=== PATIENT | male | born 1970 | race Two or more races ===

== ENCOUNTER 2025-02-13 15:46 | Inpatient (IN) | payer MEDICAID, OTHER ==
[~2025-02-13] VITALS: Ht 157.5 cm; Wt 71.7 kg
--- NOTE | 2025-02-13 19:00 | ED.PDOC ---
History of Present Illness HPI Comments 54 year old male presents to the ED with a chief complaint of wound check onset today. Patient [place] [facility] [place] he cut his LT middle finger while he was cutting wood, states laceration was glued and sutured. Since then, patient has noted black color around wound, has been experiencing fever, pain and swelling. Patient is concerned for infection. Denies nausea, vomiting, diarrhea, headache, dizziness, chest pain, shortness of breath, numbness/tingling. No other symptoms or modifying factors present at this time. PHYSICAL EXAM: General: Awake, alert and oriented. No acute distress. Skin: Skin in warm, dry and intact without rashes or lesions. HEENT: The head is normocephalic and atraumatic. Conjunctivae are clear without exudates or hemorrhage. Sclera is non-icteric. Neck: Normal range of motion. No JVD. Cardiac: Regular rate Respiratory: No signs of respiratory distress. No Stridor. Extremities: 3rd distal digit tender, erythematous, swollen with some area of necrotic appearing tissue. Range of motion of joints intact. Eight sutures imbedded. Neurological: The patient is awake, alert and oriented to person, place, and time with normal speech. Speech is clear. There is no facial asymmetry. Psychiatric: Appropriate mood and affect. Good judgement and insight. REVIEW OF SYSTEMS: General: fever. no chills, or fatigue HEENT: No sore throat, no earache, no congestion, no neck pain. Cardiac: No chest pain. No palpitations. Lungs: No shortness of breath, no cough. GI: No nausea, no vomiting, no diarrhea, no constipation, no abdominal pain : No dysuria, frequency, or urgency. No hematuria. Musculoskeletal: swelling to LT 3rd digit, pain. Skin: wound LT 3rd digit. Neuro: No headache, no dizziness, no weakness (And as sated in HPI) Chief Complaint: Wound Check Time Seen by MD: 18:30 Reviewed Notes: Medications, Allergies Allergies: Coded Allergies: Penicillins (Verified Allergy, Unknown, 02/13/25) Information Source: Patient Mode of Arrival: Ambulatory Severity: Moderate Timing: Hours Duration: Since onset Prehospital treatment: None Past Medical History PAST MEDICAL HISTORY: Denies Surgical History: Denies all surgeries Family History Family History: Reviewed,noncontributory to illness, No family hx of Cancer, No family hx of DM, No family hx of Heart jeffy, No family hx of HTN, No family hx ofKidney jeffy, No family hx of Liver jeffy, No family hx of Lung jeffy, No family hx of Stroke Social History Smoker: Non-Smoker Alcohol: Denies ETOH Use Drugs: Denies Drug Use Lives In: Home Was a procedure done? Was a procedure done?: No Differential Dx Considerations may include: Include but are not limited to Cellulitis, abscess, felon, paronychia, osteomyelitis, sepsis, other X-Ray, Labs, Meds, VS Vital Signs Date Time Temp Pulse Resp B/P (MAP) Pulse Ox O2 Delivery O2 Flow Rate FiO2 02/13/25 15:49 98.3 70 18 134/98 99 98.3 Lab Test 02/13/25 19:05 Range/Units White Blood Count 8.1 4.4-10.8 10^3/uL Red Blood Count 4.55 4.5-5.90 10^6/uL Hemoglobin 15.0 13.5-17.5 g/dL Hematocrit 43.3 41.0-53.0 % Mean Corpuscular Volume 95.1 80.0-100.0 fL Mean Corpuscular Hemoglobin 32.9 H 28.0-32.0 pg Mean Corpuscular Hemoglobin Concent 34.6 32.0-36.0 g/dL Red Cell Distribution Width 13.4 11.8-14.3 % Platelet Count 398 140-450 10^3/uL Mean Platelet Volume 6.8 L 6.9-10.8 fL Neutrophils (%) (Auto) 54.9 37.0-80.0 % Lymphocytes (%) (Auto) 26.9 10.0-50.0 % Monocytes (%) (Auto) 10.9 0.0-12.0 % Eosinophils (%) (Auto) 6.1 0.0-7.0 % Basophils (%) (Auto) 1.2 0.0-2.0 % Neutrophils # (Auto) 4.4 1.6-8.6 10 ^3/uL Lymphocytes # (Auto) 2.2 0.4-5.4 10 ^3/uL Monocytes # (Auto) 0.9 0-1.3 10 ^3/uL Eosinophils # (Auto) 0.5 0-0.8 10 ^3/uL Basophils # (Auto) 0.1 0-0.2 10 ^3/uL Nucleated Red Blood Cells 0.1 % Sodium Level 141 136-145 mmol/L Potassium Level 4.1 3.5-5.1 mmol/L Chloride Level 100 98-107 mmol/L Carbon Dioxide Level 29 20-31 mmol/L Anion Gap 12 5-15 Blood Urea Nitrogen 9 9-23 mg/dL Creatinine 0.94 0.700-1.30 mg/dL Glomerular Filtration Rate Calc 97 >90 mL/min BUN/Creatinine Ratio 9.6 L 10.0-20.0 Serum Glucose 96 74-106 mg/dL Lactic Acid Level 2.9 *H 0.4-2.0 mmol/L Calcium Level 9.9 8.7-10.4 mg/dL [place] [id number] Ph: [phone] DIAGNOSTIC IMAGING Diagnostic Imaging Report : [id number] Signed PATIENT: LISA PICHARDOSUSACCT: [id number] UNIT: [id number] : 1970 LOC: ER ROOM / BED: / AGE / SEX: 54 / M ADM STATUS: REG ER SERVICE 50 ORDERING PHYSICIAN: TRE GAMEZ MD PROCEDURE(s): LFIN3 - L 3RD FINGER XRAY REASON: Left finger infection ORDER NUMBER(s): [id number], ACCESSION NUMBER(s): [id number] CLINICAL INDICATION: Left finger infection TECHNIQUE: 3 radiographic views of the left 3rd finger were obtained. Comparison: None FINDINGS/IMPRESSION: Soft tissue swelling is noted over the distal interphalangeal joint of the left 3rd finger. Soft tissue injury is noted over the distal phalanx. No fractures or dislocations. ATED BY: BREEZY ACOSTA Jr., DO DICTATED DATE/TIME: 02/13/251947 SIGNED BY: BREEZY ACOSTA Jr., DO SIGNED DATE/TIME: 02/13/251947 CC: Time of 1ST Reevaluation: 19:00 Reevaluation 1ST: Unchanged Patient Education/Counseling: Diagnosis, Treatment, Other (Need for admission) Family Education/Counseling: No Family Present SEPSIS Sepsis Screen Date sepsis recognized/suspect: Feb 13, 2025 Time Sepsis recognized/suspect: 1553 Recent Procedure: No On Antibiotic Therapy: No Respiratory Rate >20: No Heart Rate >90: No Temp<36 C (96.8 F) or >38.3 C: No SBP <90 or MAP <65 mmHG: No New Acute Mental Status Change: No Is the patient on CPAP, BIPAP,: No Physician Orders Saline Lock (02/13/25 18:51) L 3rd Finger Xray (02/13/25 18:51) Vital Signs Date Time Temp Pulse Resp B/P (MAP) Pulse Ox O2 Delivery O2 Flow Rate FiO2 02/13/25 15:49 98.3 70 18 134/98 99 98.3 Laboratory Tests Test 02/13/25 19:05 Lactic Acid Level 2.9 mmol/L (0.4-2.0) *H White Blood Count 8.1 10^3/uL (4.4-10.8) Departure 1 Departure Time of Disposition: 21:04 Impression: Primary Impression: Wound infection Additional Impression: Lactic acidemia Disposition: ADMITTED INPATIENT Condition: Stable Comments MDM: Eight sutures removed from 3rd digit wound. Patient is stabilized in the ED. Antibiotics initiated. Patient admitted to hospitalist service for further treatment, evaluation and monitoring. Extensive evaluation was performed in attempt to identify or rule out: (See differential diagnosis section) The following tests were ordered, and results were reviewed by me and discussed with patient: (See diagnostic results section) Decision regarding hospitalization or escalation of hospital level of care: Risk and benefits of admission for further treatment of patient's condition was considered. Due to patient's current clinical condition, high risk of decline and poor outcome if discharged and need for further inpatient management and monitoring, patient will be admitted to the hospital. Critical Care Note Critical Care Time?: No Stability Stability form required: No Heart Score Heart Score: Heart Score Response (Comments) Value History N/A 0 EKG N/A 0 Age N/A 0 Risk Factors N/A 0 Troponin N/A 0 Total 0 I personally scribed for TRE GAMEZ MD ([email or web address]) on 02/13/25 at 19:00. Electronically submitted by Maria Luisa Olivera ([email or web address]). I personally scribed for TRE GAMEZ MD ([email or web address]) on 02/13/25 at 19:09. Electronically submitted by Maria Luisa Olivera ([email or web address]). I personally scribed for TRE GAMEZ MD ([email or web address]) on 02/13/25 at 20:01. Electronically submitted by Maria Luisa Olivera ([email or web address]). TRE GAMEZ MD Feb 13, 2025 19:00
[2025-02-13 19:21] LABS: Hematocrit 43.3 % (41.0-53.0); Hemoglobin 15.0 g/dL (13.5-17.5); Mean Corpuscular Hemoglobin 32.9 pg (28.0-32.0); Mean Corpuscular Volume 95.1 fL (80.0-100.0); Nucleated Red Blood Cells % 0.1 %
[2025-02-13 19:26] LABS: Chloride 100 mmol/L (98-107); Potassium 4.1 mmol/L (3.5-5.1); Sodium 141 mmol/L (136-145)
[2025-02-13 19:27] LABS: Anion Gap 12 (5-15); Carbon Dioxide 29 mmol/L (20-31)
[2025-02-13 19:28] LABS: Calcium 9.9 mg/dL (8.7-10.4)
[2025-02-13 19:33] LABS: BUN/Creatinine Ratio 9.6 (10.0-20.0); Blood Urea Nitrogen 9 mg/dL (9-23); Glucose 96 mg/dL (74-106)
[2025-02-13 19:41] LABS: Lactic Acid w/Reflex 2.9 mmol/L (0.4-2.0)
--- NOTE | 2025-02-13 19:50 | DVH ---
CLINICAL INDICATION: Left finger infection TECHNIQUE: 3 radiographic views of the left 3rd finger were obtained. Comparison: None FINDINGS/IMPRESSION: Soft tissue swelling is noted over the distal interphalangeal joint of the left 3rd finger. Soft tissue injury is noted over the distal phalanx. No fractures or dislocations.
[2025-02-13 22:16] VITALS: PULSE 88; RESP 16; O2SAT 99
[2025-02-13] MEDS: CLINDAMYCIN 600MG IV 50 ML IV ONE (22:47)
[2025-02-13] MEDS: KETOROLAC TROMETH 30 MG/ML 1ML VIAL IV ONE (22:47)
[2025-02-13] MEDS: SODIUM CHLORIDE 0.9% 1,000 ML IV ONE (22:47)
[2025-02-13] MEDS ORDERED: ONDANSETRON HCL 4 MG/2 ML VIAL IV PRN (23:00)
[2025-02-13] MEDS ORDERED: ACETAMINOPHEN 325 MG TAB PO PRN (23:00)
--- NOTE | 2025-02-13 23:18 | DVHHP2 ---
History of Present Illness Reason for Visit: Wound check History of Present Illness 54-year-old male presents for evaluation of wound check. Patient reports having an accident 10 days ago where he cut the tip of his left middle finger. He had sutures placed and sent home with antibiotics. Today he comes back with pain and swelling to the site and occasional fever. Past Medical History Denies Past Surgical History Denies Family History Noncontributory Smoke: No ALCOHOL: occassional Drugs: None Lives: with Family Review of Systems Review of Systems Review of systems are currently negative otherwise addressed in HPI. Allergies: Coded Allergies: Penicillins (Verified Allergy, Unknown, 02/13/25) Medications Current Medications Medications Dose Ordered Sig/Sandra Route Start Time Stop Time Status Last Admin Dose Admin Levofloxacin/ Dextrose 100 ml @ 100 mls/hr Q24H IV 02/14/25 23:00 Clindamycin Phosphate 50 ml @ 50 mls/hr Q8HR IV 02/14/25 06:00 Acetaminophen/ Hydrocodone Bitart 1 tab Q4HP PRN PO 02/13/25 23:00 Ondansetron HCl 4 mg Q4HP PRN IV 02/13/25 23:00 Acetaminophen 650 mg Q6HP PRN PO 02/13/25 23:00 Exam Vital Signs Vital Signs Date Time Temp Pulse Resp B/P (MAP) Pulse Ox O2 Delivery O2 Flow Rate FiO2 02/13/25 22:16 88 16 99 Room Air* 0 21 02/13/25 22:16 128/64 (85) 02/13/25 15:49 98.3 98.3 Exam Gen: 54-year-old male in mild distress. Skin: Warm, dry, normal color and texture, no rash. HEENT: Normocephalic atraumatic, mucous membranes moist and pink. Neck: Cervical and supraclavicular nodes normal without enlargement, trachea is midline, thyroid gland is normal without masses. Pulmonary: Clear to auscultation and percussion bilaterally. Cardiac: Regular rate and rhythm. No murmur Abdomen: Soft, nontender, nondistended, bowel sounds present all 4 quadrants, no guarding, no rigidity, no organomegaly. Extremities: No cyanosis, clubbing, left middle finger open wound Neuro: Cranial nerves II through XII grossly intact, normal affect and speech, no focal motor deficits. Labs/Xrays ORDERING PHYSICIAN: TRE GAMEZ MD PROCEDURE(s): LFIN3 - L 3RD FINGER XRAY REASON: Left finger infection ORDER NUMBER(s): [id number], ACCESSION NUMBER(s): [id number] CLINICAL INDICATION: Left finger infection TECHNIQUE: 3 radiographic views of the left 3rd finger were obtained. Comparison: None FINDINGS/IMPRESSION: Soft tissue swelling is noted over the distal interphalangeal joint of the left 3rd finger. Soft tissue injury is noted over the distal phalanx. No fractures or dislocations. Labs Test 02/13/25 21:15 02/13/25 19:05 Range/Units Lactic Acid Level 1.4 0.4-2.0 mmol/L White Blood Count 8.1 4.4-10.8 10^3/uL Red Blood Count 4.55 4.5-5.90 10^6/uL Hemoglobin 15.0 13.5-17.5 g/dL Hematocrit 43.3 41.0-53.0 % Mean Corpuscular Volume 95.1 80.0-100.0 fL Mean Corpuscular Hemoglobin 32.9 H 28.0-32.0 pg Mean Corpuscular Hemoglobin Concent 34.6 32.0-36.0 g/dL Red Cell Distribution Width 13.4 11.8-14.3 % Platelet Count 398 140-450 10^3/uL Mean Platelet Volume 6.8 L 6.9-10.8 fL Neutrophils (%) (Auto) 54.9 37.0-80.0 % Lymphocytes (%) (Auto) 26.9 10.0-50.0 % Monocytes (%) (Auto) 10.9 0.0-12.0 % Eosinophils (%) (Auto) 6.1 0.0-7.0 % Basophils (%) (Auto) 1.2 0.0-2.0 % Neutrophils # (Auto) 4.4 1.6-8.6 10 ^3/uL Lymphocytes # (Auto) 2.2 0.4-5.4 10 ^3/uL Monocytes # (Auto) 0.9 0-1.3 10 ^3/uL Eosinophils # (Auto) 0.5 0-0.8 10 ^3/uL Basophils # (Auto) 0.1 0-0.2 10 ^3/uL Nucleated Red Blood Cells 0.1 % Sodium Level 141 136-145 mmol/L Potassium Level 4.1 3.5-5.1 mmol/L Chloride Level 100 98-107 mmol/L Carbon Dioxide Level 29 20-31 mmol/L Anion Gap 12 5-15 Blood Urea Nitrogen 9 9-23 mg/dL Creatinine 0.94 0.700-1.30 mg/dL Glomerular Filtration Rate Calc 97 >90 mL/min BUN/Creatinine Ratio 9.6 L 10.0-20.0 Serum Glucose 96 74-106 mg/dL Calcium Level 9.9 8.7-10.4 mg/dL SEPSIS Sepsis Screen Date sepsis recognized/suspect: Feb 13, 2025 Time Sepsis recognized/suspect: 2215 Recent Procedure: No On Antibiotic Therapy: No Respiratory Rate >20: No Heart Rate >90: No Temp<36 C (96.8 F) or >38.3 C: No SBP <90 or MAP <65 mmHG: No New Acute Mental Status Change: No Is the patient on CPAP, BIPAP,: No Physician Orders Saline Lock (02/13/25 18:51) L 3rd Finger Xray (02/13/25 18:51) * Wound Consult (02/13/25 ) Levofloxacin 500mg (Levaquin 500mg/ 100m (02/14/25 23:00) Levofloxacin 500mg (Levaquin 500mg/ 100m (02/13/25 23:00) Clindamycin 600mg Iv (Cleocin Iv) (02/14/25 06:00) Wound Culture W/ Gs (02/13/25 22:51) Admit (02/13/25 22:51) Hydrocodone-Acet 5/325mg Tab ([place] 5/32 (02/13/25 23:00) Ondansetron Hcl (Zofran) (02/13/25 23:00) Complete Blood Count (02/14/25 04:00) Condition: Stable (02/13/25 22:51) Acetaminophen Tablet (Tylenol Tablet) (02/13/25 23:00) Bedrest With Bathroom Privileg (02/13/25 22:51) Regular Diet (02/14/25 Breakfast) Vital Signs Date Time Temp Pulse Resp B/P (MAP) Pulse Ox O2 Delivery O2 Flow Rate FiO2 02/13/25 22:16 88 16 99 Room Air* 0 21 02/13/25 22:16 88 16 128/64 (85) 99 02/13/25 15:49 98.3 70 18 134/98 99 98.3 Laboratory Tests Test 02/13/25 19:05 02/13/25 21:15 Lactic Acid Level 2.9 mmol/L (0.4-2.0) *H 1.4 mmol/L (0.4-2.0) White Blood Count 8.1 10^3/uL (4.4-10.8) Medications Medications Dose Ordered Sig/Sandra Route Start Time Stop Time Status Last Admin Dose Admin Clindamycin Phosphate 50 ml @ 50 mls/hr ONCE ONCE IV 02/13/25 19:00 02/13/25 19:59 DC 02/13/25 22:47 50 MLS/HR Ketorolac Tromethamine 30 mg ONCE ONCE IV 02/13/25 19:00 02/13/25 19:01 DC 02/13/25 22:47 30 MG Sodium Chloride 1,000 ml @ 1,000 mls/hr Q1H ONCE IV 02/13/25 20:00 02/13/25 20:59 DC 02/13/25 22:47 1,000 MLS/HR Assessment/Plan Assessment/Plan Assessment Left finger open wound with cellulitis Lactic acidosis Plan Admit the patient to [facility] to the hospitalist Levaquin/clindamycin Wound cultures Wound consult Pain management Continue treatment per orders. Plan discussed with: Patient My Orders Orders - FROYLAN LARRY AGACNP Procedure Category Date Status Time * Wound Consult CONS 02/13/25 Transmitted Levofloxacin 500mg PHA 02/14/25 In Process (Levaquin 500mg/ 100m 23:00 Levofloxacin 500mg PHA 02/13/25 In Process (Levaquin 500mg/ 100m 23:00 Clindamycin 600mg Iv PHA 02/14/25 In Process (Cleocin Iv) 06:00 Wound Culture W/ Gs SHANE 02/13/25 Logged 22:51 Admit ADMIT 02/13/25 Transmitted 22:51 Hydrocodone-Acet PHA 02/13/25 In Process 5/325mg Tab ([place] 23:00 Ondansetron Hcl PHA 11/12/25 In Process (Zofran) 23:00 Complete Blood Count LAB 02/14/25 Verified 04:00 Condition: Stable YASIR 02/13/25 In Process 22:51 Acetaminophen Tablet PHA 02/13/25 In Process (Tylenol Tablet) 23:00 Bedrest With Bathroom YASIR 02/13/25 In Process Privileg 22:51 Regular Diet DIET 02/14/25 Transmitted Breakfast Date of Service: Feb 13, 2025 Billing Provider: FROYLAN LARRY Common Visit Codes: [id number] INP/OBS CARE (HIGH) FROYLAN LRARY Feb 13, 2025 23:18
[2025-02-14] VITALS (8 sets, daily range): BP systolic 105–159; BP diastolic 59–86; PULSE 50–69; RESP 16–20; TEMP 97.8–98.9; O2SAT 90–100
[2025-02-14 04:29] LABS: Hematocrit 38.4 % (41.0-53.0); Hemoglobin 13.6 g/dL (13.5-17.5); Mean Corpuscular Hemoglobin 32.8 pg (28.0-32.0); Mean Corpuscular Volume 92.7 fL (80.0-100.0); Nucleated Red Blood Cells % 0.1 %
[2025-02-14] MEDS: CLINDAMYCIN 600MG IV 50 ML IV SCH (05:11)
[2025-02-14] MEDS: HYDROcodone-ACET 5/325MG TAB PO PRN (09:04)
--- NOTE | 2025-02-14 12:47 | DVHPN2 ---
Subjective finger with foul smelling Reviewed: H&P Changes from previous H/P or p: No Changes Objective Vitals Vital Signs Date Time Temp Pulse Resp B/P (MAP) Pulse Ox O2 Delivery O2 Flow Rate FiO2 02/14/25 09:26 98.1 50 18 144/86 (105) 99 98.1 02/14/25 04:04 Room Air* 0 21 Intake/Output Intake and Output 02/14/25 07:00 Intake Total 1400 ml Balance 1400 ml Intake Oral 200 ml IV Total 1200 ml # Voids 1 General Appearance: Alert, Oriented X3 HEENT: Atraumatic Cardiovascular: Regular rate, Normal S1, Normal S2 Abdomen: Normal bowel sounds Medications Current Medications Medications Dose Ordered Sig/Sandra Route Start Time Stop Time Status Last Admin Dose Admin Levofloxacin/ Dextrose 100 ml @ 100 mls/hr Q24H IV 02/14/25 23:00 Clindamycin Phosphate 50 ml @ 50 mls/hr Q8HR IV 02/14/25 06:00 02/14/25 05:11 50 MLS/HR Acetaminophen/ Hydrocodone Bitart 1 tab Q4HP PRN PO 02/13/25 23:00 02/14/25 09:04 1 TAB Ondansetron HCl 4 mg Q4HP PRN IV 02/13/25 23:00 Acetaminophen 650 mg Q6HP PRN PO 02/13/25 23:00 Laboratory Results Laboratory Tests 02/13/25 19:05 02/14/25 03:53 Chemistry Test 02/13/25 19:05 Calcium Level 9.9 mg/dL (8.7-10.4) Assessment/Plan Assessment/Plan Left finger open wound with cellulitis Lactic acidosis Plan Admit the patient to [facility] to the hospitalist Levaquin/clindamycin Wound cultures Wound consult Pain management Continue treatment per orders. Consult surgery Plan discussed with: Patient Date of Service: Feb 14, 2025 Billing Provider: JUAN BROWN MD Common Visit Codes: [id number] INP/OBS CARE(HIGH) JUAN BROWN MD Feb 14, 2025 12:47
--- NOTE | 2025-02-14 14:22 | DVHPN2 ---
Progress Note Date Seen: Feb 14, 2025 Medical Necessity Reason Pt with a Central, PICC or Fol: No Objective vital signs Vital Sign Date Time Temp Pulse Resp B/P (MAP) Pulse Ox O2 Delivery O2 Flow Rate FiO2 02/14/25 09:26 98.1 50 18 144/86 (105) 99 98.1 02/14/25 04:04 Room Air* 0 21 Total Intake and Output 02/13/25 02/13/25 02/14/25 15:00 23:00 07:00 Intake Total 1400 ml Balance 1400 ml medications Current Medications Medications Dose Ordered Sig/Sandra Route Start Time Stop Time Status Last Admin Dose Admin Levofloxacin/ Dextrose 100 ml @ 100 mls/hr Q24H IV 02/14/25 23:00 Clindamycin Phosphate 50 ml @ 50 mls/hr Q8HR IV 02/14/25 06:00 02/14/25 05:11 50 MLS/HR Acetaminophen/ Hydrocodone Bitart 1 tab Q4HP PRN PO 02/13/25 23:00 02/14/25 09:04 1 TAB Ondansetron HCl 4 mg Q4HP PRN IV 02/13/25 23:00 Acetaminophen 650 mg Q6HP PRN PO 02/13/25 23:00 laboratory and microbiology Laboratory Tests 02/14/25 03:53 02/13/25 19:05 Test 02/13/25 19:05 Range/Units Serum Glucose 96 74-106 mg/dL Problem List/Assessment/Plan Problem List/Assessment/Plan 02/14/25 : After discussion with Dr. Stewart, it was noted that he does not perform surgery on the hand. recommend consult to an orthopedic or hand specialist Dr. BROWN,JUAN Israel MD informed Plan discussed with: Other (Dr. vance , Dr Brown) GABRIELE RUSSO NP Feb 14, 2025 14:22
[2025-02-15] VITALS (7 sets, daily range): BP systolic 121–150; BP diastolic 74–88; PULSE 54–60; RESP 17–19; TEMP 97.7–98.8; O2SAT 94–100
--- NOTE | 2025-02-15 07:43 | DVHINCON2 ---
Date of service: Feb 15, 2025 History of Present Illness Mr. Zamarripa is a 54-year-old male who was brought to the hospital for a wound check of the tip of his left middle finger. Patient reports having an accident approximately 1-1/2 weeks ago we cut the tip of his middle finger and had sutures placed in sent home with antibiotics but notes that the incision has been swelling with light yellowish white drainage coming out from the incision site that he notes has improved since being admitted to the hospital and being started on antibiotics. Patient is otherwise feeling well denying any other complaints or concerns during my evaluation. Past Medical History Denies Past Surgical History Left middle finger laceration closure Family History From a contributory Social History Patient admits to occasional alcohol use but denied smoking or any other illicit substance abuse Allergies: Coded Allergies: Penicillins (Verified Allergy, Unknown, 02/13/25) Current Medications Current Medications Medications (Trade) Dose Ordered Sig/Sandra Route PRN Reason Start Time Stop Time Status Last Admin Levofloxacin/ Dextrose 100 ml @ 100 mls/hr Q24H IV 02/14/25 23:00 02/14/25 23:08 Review of Systems 10 point review of systems negative except as per HPI Vital Signs Vital Signs Date Time Temp Pulse Resp B/P (MAP) Pulse Ox O2 Delivery O2 Flow Rate FiO2 02/15/25 04:48 98.0 55 18 146/74 (98) 96 98.0 02/14/25 20:00 Room Air* 0 21 Physical Exam General appearance: A&O x4 in no acute distress HEENT: Normal ENT inspection, pharynx normal, TMs normal Neck: Full range of motion, nontender, normal inspection Respiratory: Chest nontender, without accessory muscle use, no respiratory distress Cardiovascular: No edema, no JVD, normal peripheral pulses Gastrointestinal: Soft, nontender, no organomegaly. Musculoskeletal: Left hand range of motion grossly intact, left middle finger tip eschar with small opening at the tip with a small amount of white yellowish discharge, normal capillary refill, no distal edema, neurovascularly intact. Skin: Dry, normal color, warm Lymphatic: No adenopathy Labs/Diagnostic Data Labs Test 02/14/25 03:53 02/13/25 21:15 02/13/25 19:05 Range/Units White Blood Count 6.0 # 4.4-10.8 10^3/uL Red Blood Count 4.14 L 4.5-5.90 10^6/uL Hemoglobin 13.6 13.5-17.5 g/dL Hematocrit 38.4 #L 41.0-53.0 % Mean Corpuscular Volume 92.7 80.0-100.0 fL Mean Corpuscular Hemoglobin 32.8 H 28.0-32.0 pg Mean Corpuscular Hemoglobin Concent 35.3 32.0-36.0 g/dL Red Cell Distribution Width 13.1 11.8-14.3 % Platelet Count 352 140-450 10^3/uL Mean Platelet Volume 7.1 6.9-10.8 fL Neutrophils (%) (Auto) 55.2 37.0-80.0 % Lymphocytes (%) (Auto) 26.6 10.0-50.0 % Monocytes (%) (Auto) 11.5 0.0-12.0 % Eosinophils (%) (Auto) 5.8 0.0-7.0 % Basophils (%) (Auto) 0.9 0.0-2.0 % Neutrophils # (Auto) 3.3 1.6-8.6 10 ^3/uL Lymphocytes # (Auto) 1.6 0.4-5.4 10 ^3/uL Monocytes # (Auto) 0.7 0-1.3 10 ^3/uL Eosinophils # (Auto) 0.3 0-0.8 10 ^3/uL Basophils # (Auto) 0.1 0-0.2 10 ^3/uL Nucleated Red Blood Cells 0.1 % Lactic Acid Level 1.4 0.4-2.0 mmol/L Sodium Level 141 136-145 mmol/L Potassium Level 4.1 3.5-5.1 mmol/L Chloride Level 100 98-107 mmol/L Carbon Dioxide Level 29 20-31 mmol/L Anion Gap 12 5-15 Blood Urea Nitrogen 9 9-23 mg/dL Creatinine 0.94 0.700-1.30 mg/dL Glomerular Filtration Rate Calc 97 >90 mL/min BUN/Creatinine Ratio 9.6 L 10.0-20.0 Serum Glucose 96 74-106 mg/dL Calcium Level 9.9 8.7-10.4 mg/dL Left hand x-ray reviewed and demonstrated: Soft tissue swelling is noted over the distal interphalangeal joint of the left 3rd finger. Soft tissue injury is noted over the distal phalanx. No fractures or dislocations. Assessment Left 3rd finger distal laceration Plan/Recommendation And had a very lengthy discussion with the patient and after discussing his case and reviewing his imaging studies with Dr. Romero an attempt was made to remove the dying tissue from the tip of his finger with 4 x 4 gauze but patient was experiencing significant pain and eschar appeared to be extending deeper then initially appeared and given that the patient notes improvement of his symptoms since being admitted and started on antibiotics patient would like to continue observing for now. Recommend wound care with daily dressing changes with only 4 x 4 gauze dressing without the use of any Xeroform or emollient dressings to allow the wound to breathe. Continue observing patient and if any changes or any further questions or concerns please contact ortho. Patient understood and agreed. Thank you for allowing us to participate in the care of your patient. Plan discussed with: Patient GABY MICHAELS Feb 15, 2025 07:43
[2025-02-15 12:03] LABS: Hematocrit 42.3 % (41.0-53.0); Hemoglobin 14.5 g/dL (13.5-17.5); Mean Corpuscular Hemoglobin 32.1 pg (28.0-32.0); Mean Corpuscular Volume 93.6 fL (80.0-100.0); Nucleated Red Blood Cells % 0.1 %
[2025-02-15 12:19] LABS: Chloride 99 mmol/L (98-107); Potassium 4.1 mmol/L (3.5-5.1); Sodium 138 mmol/L (136-145)
[2025-02-15 12:20] LABS: Anion Gap 8 (5-15); Calcium 9.4 mg/dL (8.7-10.4); Carbon Dioxide 31 mmol/L (20-31)
[2025-02-15 12:25] LABS: BUN/Creatinine Ratio 10.0 (10.0-20.0); Blood Urea Nitrogen 10 mg/dL (9-23); Glucose 101 mg/dL (74-106)
--- NOTE | 2025-02-15 18:02 | DVHPN2 ---
Subjective finger with foul smelling Reviewed: H&P Changes from previous H/P or p: No Changes Objective Vitals Vital Signs Date Time Temp Pulse Resp B/P (MAP) Pulse Ox O2 Delivery O2 Flow Rate FiO2 02/15/25 17:00 98.0 55 17 138/83 (101) 98 98.0 02/15/25 08:00 Room Air* 0 21 Intake/Output Intake and Output 02/15/25 05:00 Intake Total 1300 ml Balance 1300 ml Intake Oral 1200 ml IV Total 100 ml # Voids 4 # Bowel Movements 1 General Appearance: Alert, Oriented X3 HEENT: Atraumatic Cardiovascular: Regular rate, Normal S1, Normal S2 Abdomen: Normal bowel sounds Medications Current Medications Medications Dose Ordered Sig/Sandra Route Start Time Stop Time Status Last Admin Dose Admin Levofloxacin/ Dextrose 100 ml @ 100 mls/hr Q24H IV 02/14/25 23:00 02/14/25 23:08 100 MLS/HR Clindamycin Phosphate 50 ml @ 50 mls/hr Q8HR IV 02/14/25 06:00 02/15/25 15:42 50 MLS/HR Acetaminophen/ Hydrocodone Bitart 1 tab Q4HP PRN PO 02/13/25 23:00 02/15/25 15:47 1 TAB Ondansetron HCl 4 mg Q4HP PRN IV 02/13/25 23:00 Acetaminophen 650 mg Q6HP PRN PO 02/13/25 23:00 Laboratory Results Laboratory Tests 02/15/25 11:36 Chemistry Test 02/15/25 11:36 Calcium Level 9.4 mg/dL (8.7-10.4) Microbiology Microbiology Date/Time Source Procedure Growth Status 02/14/25 12:43 Finger Left Middle Gram Stain - Final Resulted 02/14/25 12:43 Finger Left Middle Wound Culture - Preliminary No growth Resulted Assessment/Plan Assessment/Plan Left finger open wound with cellulitis Lactic acidosis Plan Admit the patient to [facility] to the hospitalist Levaquin/clindamycin Wound cultures Wound consult Pain management Continue treatment per orders. Ortho recommended wound care and no surgery Plan discussed with: Patient Date of Service: Feb 15, 2025 Billing Provider: JUAN BROWN MD Common Visit Codes: [id number] INP/OBS CARE(HIGH) JUAN BROWN MD Feb 15, 2025 18:02
[2025-02-16 01:00] VITALS: BP 131/87; PULSE 60; RESP 18; TEMP 98.3; O2SAT 98
[2025-02-16 05:00] VITALS: BP 134/94; PULSE 52; RESP 18; TEMP 98.7; O2SAT 98
[2025-02-16 08:00] VITALS: PULSE 52; RESP 19; O2SAT 96
[2025-02-16 09:00] VITALS: BP 118/70; PULSE 52; RESP 19; TEMP 98.1; O2SAT 96
[2025-02-16 12:35] VITALS: BP 131/79; PULSE 63; RESP 18; TEMP 98.1; O2SAT 98
[2025-02-16] MEDS ORDERED: DOXY-111 PO (12:50)
--- NOTE | 2025-02-16 13:16 | DVHDS2 ---
Discharge Summary Date of Admission Feb 13, 2025 at 23:09 Date of Discharge: Feb 16, 2025 Labs/Diagnostic Data: Laboratory Results Test 02/15/25 11:36 02/13/25 21:15 White Blood Count 5.9 10^3/uL (4.4-10.8) Red Blood Count 4.52 10^6/uL (4.5-5.90) Hemoglobin 14.5 g/dL (13.5-17.5) Hematocrit 42.3 % (41.0-53.0) Mean Corpuscular Volume 93.6 fL (80.0-100.0) Mean Corpuscular Hemoglobin 32.1 pg (28.0-32.0) Mean Corpuscular Hemoglobin Concent 34.3 g/dL (32.0-36.0) Red Cell Distribution Width 13.8 % (11.8-14.3) Platelet Count 387 10^3/uL (140-450) Mean Platelet Volume 7.2 fL (6.9-10.8) Neutrophils (%) (Auto) 57.7 % (37.0-80.0) Lymphocytes (%) (Auto) 24.9 % (10.0-50.0) Monocytes (%) (Auto) 10.7 % (0.0-12.0) Eosinophils (%) (Auto) 5.8 % (0.0-7.0) Basophils (%) (Auto) 0.9 % (0.0-2.0) Neutrophils # (Auto) 3.4 10 ^3/uL (1.6-8.6) Lymphocytes # (Auto) 1.5 10 ^3/uL (0.4-5.4) Monocytes # (Auto) 0.6 10 ^3/uL (0-1.3) Eosinophils # (Auto) 0.3 10 ^3/uL (0-0.8) Basophils # (Auto) 0.1 10 ^3/uL (0-0.2) Nucleated Red Blood Cells 0.1 % Sodium Level 138 mmol/L (136-145) Potassium Level 4.1 mmol/L (3.5-5.1) Chloride Level 99 mmol/L (98-107) Carbon Dioxide Level 31 mmol/L (20-31) Anion Gap 8 (5-15) Blood Urea Nitrogen 10 mg/dL (9-23) Creatinine 1.00 mg/dL (0.700-1.30) Glomerular Filtration Rate Calc 90 mL/min (>90) BUN/Creatinine Ratio 10.0 (10.0-20.0) Serum Glucose 101 mg/dL (74-106) Calcium Level 9.4 mg/dL (8.7-10.4) Lactic Acid Level 1.4 mmol/L (0.4-2.0) Other Laboratory Tests 02/15/25 11:36 Brief Hx & Hospital Course: 54-year-old male presents for evaluation of wound check. Patient reports having an accident 10 days ago where he cut the tip of his left middle finger. He had sutures placed and sent home with antibiotics. Today he comes back with pain and swelling to the site and occasional fever. Seen by ortho and recommended wound care Condition at Discharge: Good Final Diagnosis/Problems List cellullitis Discharge Disposition: Home Discharge Instruct/Medications Diet: Regular Activity: No Restrictions, As Tolerated Follow Up/Referral: PCP in 7 days Medications: doxycycline Scheduled Doxycycline Monohydrate (Doxycycline Monohydrate), 100 MG PO BID Discharge Statement: "Patient was advised to return to the ER or call 911 if any headaches, dizziness, shortness of breath, chest pain, abdominal pain, bleeding, fevers, or worsening of medical condition. Patient was counseled about treatment plan, medications, possible side effects, patientverbalized understanding. All questions were answered to the best of my ability. This discharge took greater then 30 minutes in planning, reviewing documentation, counseling the patient, and discussing with other team members." ASSESSMENT ASSESSMENT Assessment cellullitis Date of Service: Feb 16, 2025 Billing Provider: JUAN BROWN MD Common Visit Codes: [id number]/[id number] DISCH DAY >30min JUAN BROWN MD Feb 16, 2025 13:16
== END 2025-02-16 16:58 | disposition home or self-care (01) | DRG 351 ==
LOC: ER 15:46 → OVERFLOW 23:09 → EAST 02-14 18:35
PROVIDERS: ADMIT Hospitalist; ATTEND Hospitalist
DX: S61.213A Laceration without foreign body of left middle finger without damage to nail, initial encounter (principal); E87.20 Acidosis, unspecified; L03.012 Cellulitis of left finger; W45.8XXA Other foreign body or object entering through skin, initial encounter; Y93.89 Activity, other specified; Y92.89 Other specified places as the place of occurrence of the external cause; Y99.8 Other external cause status; Z88.0 Allergy status to penicillin
CPT/HCPCS: 36415; 73140; 80048; 83605; 85025; 87081; 87205; 96365; 96375; G0378; J1885; J1956; J3490